=== PATIENT | female | born 1955 | race Two or more races ===

== ENCOUNTER 2019-09-22 14:47 | Inpatient (IN) | payer OTHER ==
[~2019-09-22] VITALS: Ht 165.1 cm; Wt 56.7 kg
--- NOTE | 2019-09-22 14:47 | NUR ---
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
--- NOTE | 2019-09-22 14:49 | NUR ---
AT BEDSIDE FOR EVAL.
--- NOTE | 2019-09-22 14:53 | NUR ---
BLOOD DRAWN AND SENT TO LAB.
--- NOTE | 2019-09-22 14:54 | NUR ---
CODE Stroke called by Dr Parr
--- NOTE | 2019-09-22 14:55 | NUR ---
PT IS WHEELED TO CT SCAN VIA ALS PROTOCOL.
[2019-09-22 15:01] LABS: BASOPHILS # (AUTO) 0.3 /CMM (0.0-0.2); EOSINOPHILS % (AUTO) 2.6 % (0.0-6.0); HEMATOCRIT 43 % (33-45); HEMOGLOBIN 14.3 g/dL (11.5-14.8); LYMPHOCYTES # (AUTO) 1.1 /CMM (0.8-4.8); LYMPHOCYTES % (AUTO) 18.5 % (20.0-44.0); MEAN CORPUSCULAR HGB CONC 33 g/dl (31.0-36.0); MEAN CORPUSCULAR VOLUME 88 fL (82-100); MONOCYTES # (AUTO) 0.4 /CMM (0.1-1.30); MONOCYTES % (AUTO) 6.5 % (2.0-12.0); NEUTROPHILS # (AUTO) 3.9 /CMM (1.8-8.9); NEUTROPHILS % (AUTO) 67.4 % (43.0-81.0); PLATELET COUNT (AUTO) 343 /CMM (150-450); RED BLOOD CELL COUNT(AUTO) 4.85 MIL/uL (4.0-5.2); WHITE BLOOD COUNT (AUTO) 5.8 K/uL (4.3-11.0)
--- NOTE | 2019-09-22 15:04 | NUR ---
PT IS BACK FROM THE CT SCAN.
[2019-09-22 15:10] LABS: CALCIUM, SERUM 8.9 mg/dL (8.5-10.1); CARBON DIOXIDE 23 mmol/L (21-32); CHLORIDE 102 mmol/L (98-107); GLUCOSE 115 mg/dL (74-106); POTASSIUM 3.1 mmol/L (3.5-5.1); SODIUM SERUM 140 mmol/L (136-145); UREA NITROGEN, BLOOD 19 mg/dL (7-18)
[2019-09-22 15:21] LABS: CHOLESTEROL 248 mg/dL (<200); HDL CHOLESTEROL 106 mg/dL (40-60); LDL 123 mg/dL (0-99); TRIGLYCERIDES 106 mg/dL (30-150)
[2019-09-22 15:23] LABS: ALANINE AMINOTRANSFERASE 25 U/L (12-78); ALKALINE PHOSPHATASE 68 U/L (46-116); ASPARTATE AMINOTRANSFERASE 21 U/L (15-37); BILIRUBIN,DIRECT 0.1 mg/dL (0.0-0.2); BILIRUBIN,TOTAL 0.7 mg/dL (0.2-1.0); TOTAL PROTEIN, SERUM 6.9 g/dL (6.4-8.2)
[2019-09-22] MEDS ORDERED: ASPIRIN 325 MG TABLET ONE (16:07)
--- NOTE | 2019-09-22 16:07 | NUR ---
CALLED NURSING SUP FOR TELE BED.
--- NOTE | 2019-09-22 16:15 | NUR ---
PAGED [facility].
--- NOTE | 2019-09-22 16:21 | NUR ---
NURSING SUP GAVE TELE BED 310-1.
[2019-09-22] MEDS ORDERED: ASPIRIN 325 MG TABLET PO ONE (16:30)
--- NOTE | 2019-09-22 16:50 | NUR ---
REPORT GIVEN TO RN SALIMA FOR BENITEZ.
[2019-09-22] MEDS ORDERED: MAG HYDROX/AL HYDROX/SIMETH 30 ML UDC PO PRN (17:00)
[2019-09-22] MEDS ORDERED: hydrALAZINE HCL IV 20 MG VIAL IV ONE (17:00)
[2019-09-22] MEDS ORDERED: ACETAMINOPHEN 325 MG TABLET PO PRN (17:00)
[2019-09-22] MEDS ORDERED: ENOXAPARIN SODIUM 40 MG/0.4 ML DISP.SYRIN SQ SCH (17:00)
--- NOTE | 2019-09-22 17:00 | NUR ---
US TECH AT BEDSIDE.
[2019-09-22] MEDS: POTASSIUM CL. PREMIX PERIPHER. 50 ML IV SCH ×4 (17:30→22:03)
[2019-09-22] MEDS ORDERED: BLOOD SUGAR DIAGNOSTIC 1 EACH STRIP IN SCH (17:30)
--- NOTE | 2019-09-22 17:40 | NUR ---
PT IS WHEELED TO CT SCAN VIA [facility].
[2019-09-22] MEDS ORDERED: CT SWABBABLE VALVE TRANS SET 1 EA INFUS.SET MC ONE (17:44)
[2019-09-22] MEDS ORDERED: IV NS 0.9% 250 ML IV ONE (17:44)
[2019-09-22] MEDS ORDERED: IOHEXOL-350 100 ML VIAL IV ONE (17:44)
[2019-09-22] MEDS: BLOOD SUGAR DIAGNOSTIC 1 EACH STRIP IN SCH ×2 (18:00→23:24)
--- NOTE | 2019-09-22 18:35 | NUR ---
rn notes Patient remains on room air, no sob noted, a/o x4. Potassium started 1/ bags. BRP, NPO at this time with L ac 20. Bed at the lowest setting, call light within reach, side rails up x2. Patient refusing medications that was to be given earlier in the ER.
[2019-09-22] MEDS ORDERED: LORAZEPAM INJ 2 MG/ML VIAL IV ONE (19:00)
--- NOTE | 2019-09-22 19:00 | NUR ---
photograph retoucher opening notes Received Pt from morning nurse. Pt is resting in bed comfortably. Pt is alert and orientedX4. Respiration is normal. No SOB. No S/S of distress noted. IV sites at LAc# 20 is clean, intact and infusing well potassium. Pt is able to ambulate with a steady gait. Tele monitor showed SR Hr at 74 bpm. Safety precautions is maintained. Bed at low position, brakes locked, side rails upX2 and call light is within reach. Will continue to monitor.
--- NOTE | 2019-09-22 19:30 | NUR ---
industrial editor notes Pt passed nursing swallowed eval without any difficulties. No S/S of distress noted. Pt tolerated activity well. Will continue to monitor.
[2019-09-22 20:00] VITALS: BP 149/96
--- NOTE | 2019-09-22 20:25 | NUR ---
aircraft dispatcher notes Informed and notified Dr. Truong regarding Pt passed nursing swallowed eval and Pt's wants to eat. Pt stated " I have to eat." Pt also have accucheck. informed and ordered diet as tolerated. Ordered carried out. Charge nurse is aware and informed. Will continue to monitor.
--- NOTE | 2019-09-22 21:37 | NUR ---
foot doctor notes Pt refused zocor 20 mg/2 tabs. Made aware risks and benefits. Pt keep refusing. Pt stated "I don't take the medication." Will continue to monitor.
[2019-09-22] MEDS ORDERED: SIMVASTATIN 40 MG TABLET PO SCH (22:00)
[2019-09-22] MEDS ORDERED: SIMVASTATIN 20 MG TABLET PO SCH (22:00)
[2019-09-23] VITALS: BP 135/84
[2019-09-23 00:55] VITALS: BP 135/84
[2019-09-23 04:00] VITALS: BP 130/73
[2019-09-23] MEDS: BLOOD SUGAR DIAGNOSTIC 1 EACH STRIP IN SCH (05:23)
[2019-09-23 06:43] LABS: APPEARANCE,URINE CLEAR (CLEAR); BILIRUBIN,URINE NEGATIVE (NEGATIVE); BLOOD, URINE NEGATIVE Ery/uL (NEGATIVE); COLOR,URINE YELLOW (YELLOW); KETONES,URINE NEGATIVE (NEGATIVE); LEUKOCYTE ESTERASE ,URINE NEGATIVE (NEGATIVE); NITRITE, URINE NEGATIVE (NEGATIVE); PROTEIN,URINE NEGATIVE (NEGATIVE); UGLUCOSE NEGATIVE (NEGATIVE); UROBILINOGEN,URINE 0.2 EU/dL (0.2)
[2019-09-23 06:44] LABS: BASOPHILS % (AUTO) 0.8 % (0.0-2.0); HEMATOCRIT 41 % (33-45); HEMOGLOBIN 13.3 g/dL (11.5-14.8); LYMPHOCYTES # (AUTO) 1.5 /CMM (0.8-4.8); LYMPHOCYTES % (AUTO) 27.1 % (20.0-44.0); MEAN CORPUSCULAR HGB CONC 33 g/dl (31.0-36.0); MEAN CORPUSCULAR VOLUME 90 fL (82-100); MONOCYTES # (AUTO) 0.6 /CMM (0.1-1.30); MONOCYTES % (AUTO) 11.6 % (2.0-12.0); NEUTROPHILS % (AUTO) 55.5 % (43.0-81.0); PLATELET COUNT (AUTO) 286 /CMM (150-450); RED BLOOD CELL COUNT(AUTO) 4.53 MIL/uL (4.0-5.2); WHITE BLOOD COUNT (AUTO) 5.5 K/uL (4.3-11.0)
--- NOTE | 2019-09-23 06:50 | NUR ---
oracle iam consultant closing notes Pt is resting in bed comfortably. Pt is alert and orientedX4. Respiration is normal. No SOB. No S/S of distress noted. IV sites at LAc# 20 is clean, intact and SL. VS is stable. Afebrile. Routine meds were given as ordered. Tele monitor showed SR Hr at 60 bpm. Kept Pt clean, dry and comfortable. All needs met and attended. Safety precautions is maintained. Bed at low position, brakes locked, side rails upX2 and call light is within reach. Will endorse to morning nurse for BENITEZ.
[2019-09-23 06:54] LABS: THYROID STIMULATING HORMONE 4.177 uIU/mL (0.358-3.74)
[2019-09-23 07:14] LABS: ALBUMIN 3.4 g/dL (3.4-5.0); BILIRUBIN,TOTAL 0.4 mg/dL (0.2-1.0); CALCIUM, SERUM 8.5 mg/dL (8.5-10.1); CREATININE 0.9 mg/dL (0.6-1.3); PHOSPHORUS 4.2 mg/dL (2.5-4.9); TOTAL PROTEIN, SERUM 6.2 g/dL (6.4-8.2)
--- NOTE | 2019-09-23 07:43 | NUR ---
RN NOTES PATIENT IN BED RESTING. NO SOB OR ACUTE DISTRESS NOTED. PATIENT ALERT, ORIENTED X4. BED IN LOW LOCKED POSITION. CALL LIGHT WITHIN REACH. WILL CONTINUE TO MONITOR.
[2019-09-23] MEDS ORDERED: DOCUSATE SODIUM 100 MG CAPSULE PO SCH (09:00)
[2019-09-23] MEDS ORDERED: ASPIRIN EC 325 MG TABLET.DR PO SCH (09:00)
[2019-09-23] MEDS ORDERED: PANTOPRAZOLE 40 MG VIAL IV SCH (09:00)
[2019-09-23] MEDS ORDERED: SIMV10TA98 PO (09:41)
[2019-09-23] MEDS ORDERED: ASPI-605 PO (09:41)
--- NOTE | 2019-09-23 10:00 | NUR ---
MS RN NOTES PATIENT SEEN BY DR. HANEY NO NEW ORDERS. CLEARED FOR DISCHARGE.
--- NOTE | 2019-09-23 11:50 | NUR ---
MS RN NOTES PATIENT DISCHARGED HOME IN STABLE CONDITION. PATIENT ALERT, ORIENTED X4. DISCHARGE TEACHING PROVIDED, VERBALIZED UNDERSTANDING. PATIENT EAGER TO BE DISCHARGED. DISCHARGE PROTOCOL FOLLOWED. MD AWARE OF ALL ABNORMAL LABS AND TEST. PERIPHERAL IV REMOVED WITH MINIMAL BLEEDING. ID BAND REMOVED. PATIENT ESCORTED TO CAR .
== END 2019-09-23 11:00 | disposition home or self-care (01) | DRG 71 ==
LOC: ER 14:51 → TELE 16:44 → MED 09-23 09:42
PROVIDERS: ADMIT Registered Nurse; ATTEND Registered Nurse
DX: G45.4 Transient global amnesia (principal); I16.1 Hypertensive emergency; I10 Essential (primary) hypertension; E86.0 Dehydration; E87.6 Hypokalemia; Z86.73 Personal history of transient ischemic attack (TIA), and cerebral infarction without residual deficits; R53.1 Weakness; R42 Dizziness and giddiness; Z72.89 Other problems related to lifestyle; Z82.3 Family history of stroke
CPT/HCPCS: 36415; 70450-TC; 70496-TC; 71045-TC; 80048-TC; 80053-TC; 80061-TC; 80076-TC; 80305; 81000-TC; 82140-TC; 82962-TC; 83735-TC; 84100-TC; 84443-TC; 84484-TC; 85025-TC; 85730-TC; 87081-TC; 93307-TC; 93880-TC; 97116-TC; 97530-TC; C9113; G0378; J3480; J7050; Q9967

== ENCOUNTER 2023-06-11 16:28 | Emergency (ER) | payer BC, MEDICARE ==
[~2023-06-11] VITALS: Ht 165.1 cm; Wt 56.7 kg
[~2023-06-11 16:28] MED LIST: ACET-2605 PO; ASPI-605 PO; SIMV10TA98 PO
[2023-06-11 16:50] VITALS: TEMP 98
[2023-06-11 18:37] LABS: BASOPHILS % (AUTO) 0.7 % (0.0-2.0); EOSINOPHILS # (AUTO) 0.4 K/uL (0.0-0.7); EOSINOPHILS % (AUTO) 6.9 % (0.0-6.0); HEMATOCRIT 42 % (33-45); HEMOGLOBIN 13.8 g/dL (11.5-14.8); LYMPHOCYTES # (AUTO) 1.6 K/uL (0.8-4.8); LYMPHOCYTES % (AUTO) 25.6 % (20.0-44.0); MEAN CORPUSCULAR HEMOGLOBIN 29 PG (26.0-33.0); MEAN CORPUSCULAR HGB CONC 33 g/dl (31.0-36.0); MEAN CORPUSCULAR VOLUME 88 fL (82-100); MONOCYTES # (AUTO) 0.5 K/uL (0.1-1.30); MONOCYTES % (AUTO) 8.2 % (2.0-12.0); NEUTROPHILS # (AUTO) 3.7 K/uL (1.8-8.9); NEUTROPHILS % (AUTO) 58.6 % (43.0-81.0); PLATELET COUNT (AUTO) 313 K/uL (150-450); RED BLOOD CELL COUNT(AUTO) 4.72 MIL/uL (4.0-5.2); RED CELL DISTRIBUTION WIDTH 13.6 % (11.5-15.0); WHITE BLOOD COUNT (AUTO) 6.3 K/uL (4.3-11.0)
[2023-06-11 18:49] LABS: CALCIUM, SERUM 8.8 mg/dL (8.5-10.1); CARBON DIOXIDE 27 mmol/L (21-32); CHLORIDE 101 mmol/L (98-107); CREATININE 0.7 mg/dL (0.6-1.3); GLUCOSE 84 mg/dL (74-106); POTASSIUM 3.7 mmol/L (3.5-5.1); SODIUM SERUM 138 mmol/L (136-145); UREA NITROGEN, BLOOD 19 mg/dL (7-18)
[2023-06-11 18:55] LABS: ALANINE AMINOTRANSFERASE 20 U/L (12-78); ALBUMIN 3.8 g/dL (3.4-5.0); ALKALINE PHOSPHATASE 71 U/L (46-116); ASPARTATE AMINOTRANSFERASE 21 U/L (15-37); BILIRUBIN,DIRECT 0.1 mg/dL (0.0-0.2); BILIRUBIN,TOTAL 0.5 mg/dL (0.2-1.0); TOTAL PROTEIN, SERUM 6.7 g/dL (6.4-8.2)
[2023-06-11 19:13] LABS: CHOLESTEROL 289 mg/dL (<200); HDL CHOLESTEROL 98 mg/dL (40-60); LDL 144 mg/dL (0-99); TRIGLYCERIDES 93 mg/dL (30-150)
[2023-06-11 19:25] LABS: APPEARANCE,URINE CLEAR (CLEAR); BILIRUBIN,URINE NEGATIVE (NEGATIVE); BLOOD, URINE TRACE-INTA Ery/uL (NEGATIVE); COLOR,URINE YELLOW (YELLOW); KETONES,URINE NEGATIVE (NEGATIVE); LEUKOCYTE ESTERASE ,URINE 1+ (NEGATIVE); NITRITE, URINE NEGATIVE (NEGATIVE); PH,URINE 6.5 (5.0-8.0); PROTEIN,URINE NEGATIVE (NEGATIVE); UGLUCOSE NEGATIVE (NEGATIVE); UROBILINOGEN,URINE 0.2 EU/dL (0.2)
[2023-06-11 19:31] LABS: INR 0.97 (0.91-1.10); PARTIAL THROMBOPLASTIN TIME 25.6 SEC (24.3-34.3); PROTHROMBIN TIME 10.3 SECS (9.2-11.1)
[2023-06-11 19:36] LABS: ADD URINE CULTURE YES; BACTERIA,URINE 1+ /HPF (None Seen)
[2023-06-11] MEDS ORDERED: ASPIRIN 325 MG TABLET ONE (21:28)
[2023-06-11] MEDS ORDERED: ASPI-1169 PO (21:34)
[2023-06-11] MEDS: ASPIRIN 325 MG TABLET PO ONE (21:34)
[2023-06-11] MEDS ORDERED: CLOP75TA15 PO (21:34)
[2023-06-11] MEDS: CLOPIDOGREL BISULFATE 75 MG TABLET PO ONE (21:34)
[2023-06-12 04:04] VITALS: BP 126/81; O2SAT 98
== END 2023-06-12 04:04 | disposition home or self-care (01) ==
LOC: ER 16:28
DX: G45.9 Transient cerebral ischemic attack, unspecified (principal); I10 Essential (primary) hypertension
CPT/HCPCS: 36415; 70450-TC; 71045-TC; 80048-TC; 80061-TC; 80076-TC; 81001; 82962-TC; 84484-TC; 85025-TC; 85730-TC; 87086-TC